=== PATIENT | male | born 1935 | race Caucasian/White ===

== ENCOUNTER → 2017-05-08 | Day surgery (SDC) | payer OTHER ==
[~2017-05-08] MED LIST: BUPIVACAINE/EPINEPHRINE 0.25% 50 ML VIAL ONE; FURO20TA PO; ISOSULFAN BLUE 50 MG/5 ML VIAL SQ ONE; NEOMYCIN/POLYMYXIN/BACITRACIN OINT 15 GM TUBE ONE; OMEP20TA39 PO; POTA10TA2 PO; PROPOFOL 200 MG/20 ML AMP IV ONE; ZOCO40TA PO; ceFAZolin 2 GM PREMIX 50 ML ONE
--- NOTE | 2017-05-08 16:12 | TN ---
cc: NILAM CHEUNG M.D. DATE OF SURGERY 05/08/2017 PREOPERATIVE DIAGNOSES 1. Malignant melanoma right superior posterior neck. 2. Residual basal cell carcinoma left upper back. 3. Concerning skin lesion right lower extremity (probable basal cell or squamous cell carcinoma). PROCEDURE PERFORMED 1. Wide local excision concerning skin lesion right lower extremity 4 x 2 cm. 2. Injection and excision right jugular sentinel lymph node. 3. Wide local excision malignant melanoma right superior posterior neck 3 x 5 cm. 4. Excision residual basal cell carcinoma left upper back 2 x 4 cm. SURGEON Nilam Cheung MD ANESTHESIA General LMA COMPLICATIONS None INDICATIONS FOR PROCEDURE Mr. Rushing is a pleasant 81-year-old gentleman who has a longstanding history of skin cancers. He has undergone multiple excisions and been followed closely. Recently he went to his muffler hand for followup. He had biopsy of two lesions. One was on the right posterior superior neck just behind the right ear which returned a malignant melanoma 1.05 mm in depth, Reynold's level IV. He also underwent excision of a concerning skin lesion was left upper back which returned basal cell carcinoma with positive margins. He was referred for surgical evaluation for wide local excision of the melanoma as well as sentinel lymph node excision due to a depth of invasion. He was also referred for excision of residual basal cell on the left upper back. Both these procedures were discussed with him in detail. He was agreeable. The patient also noted a lesion on his right lower extremity just at the bottom of his right leg which appeared to be yet another basal cell or squamous cell. I offered him excision of this lesion since he was going to the operating room and he agreed. PROCEDURE DETAILS The patient was identified, brought to the operating room and placed supine on the operating table. After adequate general anesthesia was achieved LMA, the right neck and right lower extremity were prepped and draped in standard surgical fashion. 2 mL of isosulfan blue was injected into the skin and subcutaneous tissue in the residual melanoma site behind the right ear and the superior posterior right neck. Attention was first directed to the concerning skin lesion on the right lower extremity which was in the pretibial region. 0.25% Marcaine was injected. A 2 x 4 cm elliptical incision was used to excise the lesion in toto. Subcutaneous flaps were then raised medially and laterally in order to achieve primary closure. Primary closure was accomplished using a 2-0 Vicryl for the subcutaneous tissue and a 3-0 nylon for the skin. Sterile dressings were applied. Attention was now directed to the right neck. The patient underwent a sentinel node injection downstairs in radiology in approximate location was in the right lower neck in the jugular chain. Approximate site of the lymph node was marked by radiology. This was confirmed with the probe. 0.25% Marcaine was injected and a transverse incision was made. Dissection was carried down to subcutaneous tissue. Sternocleidomastoid muscle was identified and dissected and moved medially. Dissection further down revealed the jugular vein and the carotid artery which were also moved medial. Once we did this, we were able to identify lymph tissue. The probe was used to confirm this lymph tissue had activity. It was carefully dissected using blunt dissection and freed up. A small blue node was identified and it was excised and labeled sentinel node number one. It had a 10-second count ex vivo 411. Once we did this there was only a moderate amount of activity in the neck and no significant activity. I went ahead excised the surrounding jugular pete tissue from where the sentinel node was taken due to the low grade activity seen and its proximity to the sentinel node. This was dissected out using blunt and minimal electrocautery dissection. Specimen was labeled as jugular pete tissue. Once we did this there was no significant activity noted in the neck. There was no palpable nodes noted and there was no blue dye seen. At this point I felt comfortable we had the sentinel node and the adjacent tissue. Wound was copiously irrigated with normal saline solution and injected with additional local anesthetic and the neck was closed in two layers using 3-0 and 4-0 Vicryl. Sterile dressings were applied. Attention was now directed the melanoma on the right posterior year. Elliptical incision 3 x 5 cm was used to excise the old biopsy site with generous 1 cm margins both superiorly and inferiorly. Subcutaneous tissue was dissected with electrocautery Bovie. The specimen labeled with a short stitch superior, long stitch lateral and sent to pathology for analysis. Wound was then irrigated, closed in two layers using a 3-0 Vicryl, 4-0 nylon. Sterile dressing was applied. Finally, the lesion on the back was addressed. The patient was turned up into the right lateral decubitus position with appropriate padding for hips, knees, shoulders and ankles. An axillary roll was placed. The lesion on the left upper back was prepped and draped in standard surgical fashion. A 2 x 4 cm elliptical incision was used to excise the lesion after anesthetizing the skin and subcutaneous tissue with 0.25% Marcaine. The lesion was excised in toto and labeled with a short stitch superior, a long stitch left lateral. Wound was then closed in two layers using 3-0 Vicryl and 4-0 nylon. Sterile dressings were applied. The patient was awakened, brought to recovery in stable condition. Nilam MD RENA Cheung/APRIL /3:35 PM /3:48 PM
== END | disposition home or self-care (01) ==
LOC: ESDC 09:00
PROVIDERS: ATTEND Surgery Trauma Surgery
DX: C43.4 Malignant melanoma of scalp and neck (principal); C44.519 Basal cell carcinoma of skin of other part of trunk; C44.722 Squamous cell carcinoma of skin of right lower limb, including hip
CPT/HCPCS: 00300; 00400; 11604; 11623; 11624; 38510; 88305; 88341; 88342; J0690; J3010; Q9968